=== PATIENT | female | born 1965 | race Caucasian/White ===

== ENCOUNTER 2017-03-10 15:46 | Emergency (ER) | payer OTHER ==
[2017-03-10 15:54] VITALS: BP 119/75
[2017-03-10] MEDS ORDERED: HYDROcodone/ACETAMIN 5-325 MG* 1 TAB PO ONE (16:22)
--- NOTE | 2017-03-10 16:46 | UC ---
Back Pain HPI - HPI Summary HPI Summary: Slipped and fell in bathroom hitting right side of back on bathtub - History of Current Complaint Chief Complaint: UCBackPain Stated Complaint: SEVERE BACK PAIN PT FELL 2 HRS AGO Time Seen by Provider: 03/10/17 16:15 Hx Obtained From: Patient ?: No Onset/Duration: Sudden Onset, Still Present Timing: Constant, Lasting Hours - 4 Severity Initially: Moderate Severity Currently: Moderate Pain Intensity: 8 Back Pain: Is Discrete @ - right side of posterior ribs Character: Spasmodic, Stiffness Aggravating: Bending, Walking, Cough Alleviating: Position Associated Signs And Symptoms: Positive: Redness, Bruising - Allergies/Home Medications Allergies/Adverse Reactions: Allergies Allergy/AdvReac Type Severity Reaction Status Date / Time No Known Allergies Allergy Verified 03/10/17 15:54 Home Medications: Home Medications Fenofibrate 54 mg PO DAILY 03/10/17 [History Confirmed 03/10/17] Spironolactone TAB* [Aldactone TAB 25 MG*] 25 mg PO DAILY 03/10/17 [History Confirmed 03/10/17] amLODIPine TAB* [Norvasc 5 mg TAB*] 5 mg PO DAILY 03/10/17 [History Confirmed ] PMH/Surg Hx/FS Hx/Imm Hx Previously Healthy: No Cardiovascular History Of: Reports: Hypertension - ON MEDS Respiratory History Of: Denies: Asthma - Surgical History Surgical History: Yes Surgery Procedure, Year, and Place: Hysterectomy 05/22 - Family History Known Family History: Positive: None - Social History Occupation: Employed Full-time Lives: With Family Alcohol Use: Weekly Substance Use Type: None Smoking Status (MU): Never Smoked Tobacco Review of Systems Constitutional: Negative Skin: Negative Eyes: Negative ENT: Negative Respiratory: Negative Cardiovascular: Negative, Chest Pain - right posterior ribs Gastrointestinal: Negative Genitourinary: Negative Motor: Negative Neurovascular: Negative Musculoskeletal: Negative Neurological: Negative Psychological: Negative All Other Systems Reviewed And Are Negative: Yes Physical Exam Triage Information Reviewed: Yes Appearance: Well-Appearing, Well-Nourished, Pain Distress Vital Signs: Initial Vital Signs Temp 99.0 F 03/10/17 15:51 Pulse 69 03/10/17 15:51 Resp 14 03/10/17 15:51 BP 119/75 03/10/17 15:51 Pulse Ox 100 03/10/17 15:51 Vital Signs Reviewed: Yes Eye Exam: Normal Eyes: Positive: Conjunctiva Clear ENT Exam: Normal ENT: Positive: Normal ENT inspection, Hearing grossly normal, Pharynx normal, TMs normal. Negative: Nasal congestion, Nasal drainage, Tonsillar swelling, Tonsillar exudate, Trismus, Muffled/hoarse voice Dental Exam: Normal Neck exam: Normal Neck: Positive: Supple, Nontender, No Lymphadenopathy Respiratory Exam: Normal Respiratory: Positive: Chest non-tender, Lungs clear, Normal breath sounds, No respiratory distress, No accessory muscle use Cardiovascular Exam: Normal Cardiovascular: Positive: RRR, No Murmur, Pulses Normal, Brisk Capillary Refill Abdominal Exam: Normal Abdomen Description: Positive: Nontender, No Organomegaly, Soft Bowel Sounds: Positive: Present Musculoskeletal Exam: Normal Musculoskeletal: Positive: Strength Intact, ROM Intact, No Edema Neurological Exam: Normal Neurological: Positive: Alert, Muscle Tone Normal Psychological Exam: Normal Skin Exam: Normal Diagnostics - Radiology No standard instances Xray Interpretation: Positive (See Comments) - 10th rib fx Radiology Interpretation Completed By: ED Physician, Radiologist Back Pain Course/Dx - Course Course Of Treatment: pain med, ct db, follow with pcp this week - Differential Dx/Diagnosis Differential Diagnosis/HQI/PQRI: Fracture, Strain, Sprain Provider Diagnoses: contusion, 10th rib fracture Discharge - Discharge Plan Condition: Stable Disposition: HOME Prescriptions: HYDROcodone/ACETAMIN 5-325 MG* [[place] 5-325 TAB*] 1 tab PO Q6H PRN #15 tab MDD 4 PRN Reason: pain Ibuprofen TAB* [Motrin TAB* 800 MG] 800 mg PO Q8H PRN #40 tab PRN Reason: Pain Patient Education Materials: Rib Fracture (ED), Contusion in Adults (ED), Ice Pack Application (ED) Referrals: Olivia Jiang NP [Primary Care Provider] - 3 Days
--- NOTE | 2017-03-10 17:11 | RAD ---
Indication: RIGHT posterior rib pain post fall onto bathtub. Pain with deep breathing. Comparison: No relevant prior exams available on the [facility] [facility]. Technique: PA dual-energy chest radiograph and 4 view unilateral RIGHT rib series. Report: Subtle contour irregularity at the posterior lateral segment of the RIGHT 10th rib is suspicious for a grossly nondisplaced fracture. No additional rib fractures evident. Clear lungs and pleural spaces. Negative for pneumothorax. Mild cardiomegaly. Unremarkable central pulmonary vasculature and mediastinal contours. Negative for free air beneath the diaphragm. Gallbladder fossa level surgical clips. IMPRESSION: Probable grossly nondisplaced RIGHT 10th rib fracture posterior lateral. Negative for pneumothorax.
== END 2017-03-10 17:36 | disposition home or self-care (01) ==
LOC: UCCORT 15:46
DX: S20.229A Contusion of unspecified back wall of thorax, initial encounter (principal); S22.31XA Fracture of one rib, right side, initial encounter for closed fracture; I10 Essential (primary) hypertension; W01.198A Fall on same level from slipping, tripping and stumbling with subsequent striking against other object, initial encounter; Y93.9 Activity, unspecified; Y99.9 Unspecified external cause status
CPT/HCPCS: 81003; 99212; G0463